=== PATIENT | female | born 1965 | race Caucasian/White ===

== ENCOUNTER → 2018-08-12 | Outpatient (CLI) | payer OTHER ==
--- NOTE | 2018-08-12 14:32 | XR ---
EXAMINATION TYPE: XR chest 2V DATE OF EXAM: 08/12/2018 COMPARISON: NONE TECHNIQUE: PA and lateral views submitted. HISTORY: pre surgical FINDINGS: The lungs are clear and there is no pneumothorax, pleural effusion, or focal pneumonia. No overt fa ilure. Hypertrophic change of the spine. IMPRESSION: 1. No acute process.
== END | disposition home or self-care (01) ==
LOC: RADXRMAIN 14:03
PROVIDERS: ATTEND Family Medicine
DX: Z01.818 Encounter for other preprocedural examination (principal); F17.210 Nicotine dependence, cigarettes, uncomplicated; M54.16 Radiculopathy, lumbar region
CPT/HCPCS: 71046; 93005

== ENCOUNTER → 2019-03-04 | Outpatient (CLI) | payer OTHER ==
--- NOTE | 2019-03-05 18:38 | US ---
EXAMINATION TYPE: US transvaginal DATE OF EXAM: 03/04/2019 COMPARISON: CT 2014 CLINICAL HISTORY: D25.9 Leiomyoma of uterus, R10.9 Abd/pel pain. History of ablation TECHNIQUE: Transvaginal (TV). Date of LMP: 2006 EXAM MEASUREMENTS: Uterus: 5.3 x 3.2 x 3.8 cm Endometrial Stripe: not identified Right Ovary: 1.5 x 1.0 x 1.3 cm Left Ovary: 1.5 x 1.3 x 1.3 cm 1. Uterus: Anteverted heterogeneous with at least one fibroid anterior uterus that measures 1.9 x 1.6 x 1.7 cm. 2. Endometrium: not clearly seen 3. Right Ovary: wnl 4. Left Ovary: wnl 5. Bilateral Adnexa: pelvic congestion noted left adnexal region. 6. Posterior cul-de-sac: no free fluid IMPRESSION: 1. Uterine fibroid
== END | disposition home or self-care (01) ==
LOC: RADUSWWP 16:16
PROVIDERS: ATTEND Nurse Practitioner Family
DX: D25.9 Leiomyoma of uterus, unspecified (principal); Z88.5 Allergy status to narcotic agent
CPT/HCPCS: 76830

== ENCOUNTER 2019-05-01 09:12 | Day surgery (SDC) | payer OTHER ==
[2019-04-29 16:15] VITALS: BMI 21.2
[2019-05-01] MEDS ORDERED: LIDOCAINE 1% 20 ML VIAL (10MG/ML) FOR IV START INTRADERMA PRN (09:24)
[2019-05-01] MEDS ORDERED: LACTATED RINGERS 1,000 ML IV SCH (09:24)
[2019-05-01 09:27] VITALS: TEMP 96.8
[2019-05-01] MEDS ORDERED: LIDOCAINE 1% INJ 10MG/ML (20 ML MDV) ONE (09:45)
[2019-05-01] MEDS ORDERED: PROPOFOL 10 MG/ML 20 ML VIAL IV ONE (09:45)
--- NOTE | 2019-05-01 10:13 | P.OP ---
Date of Procedure: 05/01/19 Preoperative Diagnosis: Screening for Colon CA Postoperative Diagnosis: Internal hemorrhoids Procedure(s) Performed: Colonoscopy Surgeon: Deana Alan Pathology: none sent Condition: stable Disposition: same day Indications for Procedure: 53-year-old female presents for a screening colonoscopy. She does have a history of polyps on her last colonoscopy. She was explained risks, benefits and alternatives to her procedure. The patient did provide consent prior to attending the endoscopy suite. Operative Findings: Internal hemorrhoids Description of Procedure: The patient was brought into the endoscopy suite and placed in left lateral decubitus position. Adequate sedation was achieved using conscious sedation. A digital rectal exam was performed and mild internal hemorrhoids were palpated. An endoscope was then placed in the rectum and advanced to the cecum as identified by landmarks including the appendiceal orifice and the ileocecal valve. The prep was fair. The colonoscope was then slowly withdrawn, examining for any mucosal abnormality's. The cecum, ascending, transverse, descending and sigmoid colon were visualized adequately. There were no large neoplastic lesions noted throughout the colon. There was no evidence of diverticulosis. No polyps were noted. Retroflexion was performed in the rectum and mild internal hemorrhoids were visible. Excess air was removed, the colonoscope withdrawn and the procedure terminated. The patient was then transferred to the recovery unit in stable condition. Repeat colonoscopy should be performed in 5 years due to her history of polyps in the past.
[2019-05-01 10:35] VITALS: RESP 16
[2019-05-01 10:59] VITALS: BP 124/71; PULSE 60
== END 2019-05-01 11:22 | disposition home or self-care (01) ==
LOC: ORWHC2ENDO 09:12
PROVIDERS: ATTEND Surgery
DX: Z12.11 Encounter for screening for malignant neoplasm of colon (principal); K64.8 Other hemorrhoids; Z86.010 Personal history of colon polyps; I25.2 Old myocardial infarction; F17.210 Nicotine dependence, cigarettes, uncomplicated; M19.90 Unspecified osteoarthritis, unspecified site; F41.9 Anxiety disorder, unspecified; F32.9 Major depressive disorder, single episode, unspecified; Z79.899 Other long term (current) drug therapy; Z88.5 Allergy status to narcotic agent; Z90.49 Acquired absence of other specified parts of digestive tract; Z98.890 Other specified postprocedural states; Z98.51 Tubal ligation status; Z83.3 Family history of diabetes mellitus; Z80.0 Family history of malignant neoplasm of digestive organs
CPT/HCPCS: J2001; J2704; G0105

== ENCOUNTER → 2019-05-29 | Outpatient (CLI) | payer OTHER ==
--- NOTE | 2019-05-29 16:36 | XR ---
EXAMINATION TYPE: XR chest 2V DATE OF EXAM: 05/29/2019 COMPARISON: 08/12/2018 HISTORY: 53-year-old female Z01.818, F17.210, E78.2 TECHNIQUE: Frontal and lateral views FINDINGS: The cardiomediastinal silhouette, aorta, and pulmonary vasculature are within normal limits. Mild hyp erinflation. Lungs and pleural spaces are clear. IMPRESSION: Mild hyperinflation may relate to depth of inspiration or underlying emphysema. Clinically correlate. Otherwise, no acute cardiopulmonary process.
== END | disposition home or self-care (01) ==
LOC: RADXRMAIN 15:29
PROVIDERS: ATTEND Nurse Practitioner Family
DX: Z01.818 Encounter for other preprocedural examination (principal); E78.2 Mixed hyperlipidemia; F17.210 Nicotine dependence, cigarettes, uncomplicated
CPT/HCPCS: 71046; 93005

== ENCOUNTER 2019-08-05 09:36 | Day surgery (SDC) | payer OTHER ==
[2019-08-04 14:01] VITALS: BMI 18.8
[2019-08-05 10:09] VITALS: TEMP 97.2
[2019-08-05] MEDS ORDERED: LIDOCAINE 1% (10MG/ML) FOR IV START INTRADERMA ONE (10:10)
[2019-08-05] MEDS ORDERED: LACTATED RINGERS 1,000 ML IV ONE (10:10)
[2019-08-05] MEDS ORDERED: fentaNYL (PF) 50 MCG/ML 2 ML AMP ONE (10:29)
[2019-08-05] MEDS ORDERED: MIDAZOLAM 2 MG/2 ML VIAL ONE (10:29)
[2019-08-05] MEDS ORDERED: PROPOFOL 10 MG/ML 20 ML VIAL IV ONE (10:29)
[2019-08-05] MEDS ORDERED: LIDOCAINE 1% INJ 10MG/ML (20 ML MDV) ONE (10:29)
--- NOTE | 2019-08-05 10:57 | P.PCN ---
Date of Procedure: 08/05/19 Description of Procedure: BRIEF HISTORY: 53-year-old female presenting to the hospital for EGD for evaluation of symptoms of nausea. Patient has been having persistent nausea. She reports associated weight loss. PROCEDURE PERFORMED: Esophagogastroduodenoscopy with biopsy. PREOPERATIVE DIAGNOSIS: Nausea. ESTIMATED BLOOD LOSS: Minimal. IV sedation per anesthesia. PROCEDURE: After informed consent was obtained, the patient was brought into the endoscopy unit. IV sedation was administered by Anesthesia under continuous monitoring. Initially the Olympus GIF-190 video endoscope was inserted into the mouth. Esophagus intubated without any difficulty. It was gradually advanced into the stomach and duodenum and carefully examined. The bulb and the second part of the duodenum appeared normal, with biopsies taken to rule out celiac sprue. The scope at this time was withdrawn to the stomach, adequately insufflated with air, and upon careful examination, mucosa of the antrum, body, cardia and the fundus appeared normal, with diffuse erythema and superficial erosions in the antrum and body suggestive of moderate gastritis with biopsies of antrum and body taken. The scope was then withdrawn into the esophagus. The GE junction was located at 37 cm from the incisors and appeared regular with biopsies taken. The esophagus appeared normal. There were no erosions or ulcerations seen and the patient tolerated the procedure well. IMPRESSION: 1. Moderate gastritis antrum and body, biopsied. 2. Biopsies of the GE junction and duodenum. RECOMMENDATIONS: The findings of this examination were discussed with the patient. Okay to resume diet. Okay to resume medications. Patient will be given omeprazole 20 mg twice daily for treatment of gastritis. She should follow-up for results of biopsies in the gastroenterology clinic in 2-3 weeks and for symptom assessment.
[2019-08-05 11:35] VITALS: BP 95/54; PULSE 55; RESP 18
== END 2019-08-05 12:02 | disposition home or self-care (01) ==
LOC: ORWHC2ENDO 09:36
PROVIDERS: ATTEND Internal Medicine
DX: K29.50 Unspecified chronic gastritis without bleeding (principal); F17.200 Nicotine dependence, unspecified, uncomplicated; I25.2 Old myocardial infarction; Z79.899 Other long term (current) drug therapy; Z88.5 Allergy status to narcotic agent
CPT/HCPCS: 81025; 88305; 43239; J2250; J2001; J3010; J2704

== ENCOUNTER → 2020-03-01 | Outpatient (CLI) | payer OTHER ==
[2020-03-01 15:06] LABS: Basophils % (A) 1 %; Eosinophils # (A) 0.2 k/uL (0-0.7); Eosinophils % (A) 2 %; HCT 42.2 % (34.0-46.0); HGB 13.4 gm/dL (11.4-16.0); Lymphocytes # (A) 2.8 k/uL (1.0-4.8); Lymphocytes % (A) 37 %; MCHC 31.7 g/dL (31.0-37.0); MCV 97.9 fL (80.0-100.0); Mean Platelet Volume 8.9; Monocytes # (A) 0.5 k/uL (0-1.0); Monocytes % (A) 7 %; Neutrophils # (A) 3.8 k/uL (1.3-7.7); Neutrophils % (A) 51 %; Platelet Count 171 k/uL (150-450); RBC 4.31 m/uL (3.80-5.40); RDW 13.2 % (11.5-15.5); WBC 7.5 k/uL (3.8-10.6)
[2020-03-01 19:20] LABS: Albumin 4.3 g/dL (3.80-4.90); Albumin/Globulin Ratio 2.26 (1.60-3.17); Anion Gap 5.8 mmol/L (4.00-12.00); BUN/Creat Ratio 32.86 Ratio (12.00-20.00); Calcium 9.5 mg/dL (8.7-10.3); Carbon Dioxide 32.2 mmol/L (21.6-31.8); Globulin 1.9 g/dL (1.6-3.3); Non-African American GFR(CKD) 97.5 (60.0-200.0); Potassium 4.1 mmol/L (3.5-5.5); Total Bilirubin 0.5 mg/dL (0.3-1.2); Total Protein 6.2 g/dL (6.2-8.2)
[2020-03-01 19:21] LABS: Magnesium 1.9 mg/dL (1.5-2.4)
== END | disposition home or self-care (01) ==
LOC: LABWHC1 11:49
PROVIDERS: ATTEND Nurse Practitioner Family
DX: Z01.812 Encounter for preprocedural laboratory examination (principal)
CPT/HCPCS: 36415; 80053; 83735; 85025

== ENCOUNTER → 2021-05-27 | Outpatient (CLI) | payer BC ==
--- NOTE | 2021-05-29 22:25 | XR ---
EXAMINATION TYPE: XR Hip Complete LT DATE OF EXAM: 05/27/2021 COMPARISON: NONE HISTORY: 55-year-old female M8 9.49 TECHNIQUE: 2 views FINDINGS: The left hip joint space is maintained. There is mild degenerative change of the pubic symphysis. Lef t-sided pelvic phlebolith. No acute fracture, subluxation, or dislocation. Minimal marginal spurring is present at the left hip. IMPRESSION: Minimal early degenerative spurring at the left hip but with preserved joint space at this time. No a cute osseous abnormality seen.
--- NOTE | 2021-05-29 22:30 | XR ---
EXAMINATION TYPE: XR hand complete bilateral DATE OF EXAM: 05/27/2021 COMPARISON: Correlation left wrist 01/18/2014 HISTORY: 55-year-old female M8 9.49 TECHNIQUE: 3 views each side FINDINGS: Right: No marginal erosions are seen. Minimal degenerative spurring first IP and third MCP joints. Mi ld degenerative spurring throughout the DIP joints as well more moderate at the second DIP joint and also at the second PIP joint. Mild fusiform swelling second PIP and DIP joints. Left: No marginal erosions. Moderate degenerative spurring second PIP and DIP joints, mild to moderat e for the AP and third DIP joint. Mild degenerative change first MCP and IP joints. Unable to exclude a juxta-articular erosion along the ulnar margin of the fourth proximal phalangeal head. Mild fusifo rm swelling second and fourth PIP joints. IMPRESSION: 1. Some mild joint swelling of the second finger on both sides and fourth PIP joint on the right. 2. Osteoarthritic changes scattered throughout greatest in the DIP joints. 3. Possible focal juxta-articular erosion along the ulnar aspect of the left-sided fourth proximal ph alangeal head. Clinical correlation recommended to exclude gouty arthropathy. Otherwise, no marginal erosions to suggest an inflammatory arthropathy.
== END | disposition home or self-care (01) ==
LOC: RADXRMAIN 17:11
PROVIDERS: ATTEND Family Medicine
DX: M89.49 Other hypertrophic osteoarthropathy, multiple sites (principal)
CPT/HCPCS: 73502